=== PATIENT | male | born 1935 | race Caucasian/White ===

== ENCOUNTER → 2016-10-04 | Outpatient (CLI) | payer OTHER, MEDICARE ==
[~2016-10-04] MED LIST: AMARYL1 MG PO; APRESOLINE25 MG PO; ASPIRIN325 MG PO; BETHANECHOL CHL25 MG PO; CARBIDOPA-LEVO1 EA16 PO; CARBIDOPA/LEVO1 EACH PO; EFFEXOR75 MG PO; GLUCOPHAGE1000 MG PO; GLUCOPHAGE500 MG PO; HYDROCHLOROTH12.5 M3 PO; K-TAB10 MEQ PO; LIPITOR40 MG PO; LISINOPRIL40 MG PO; LO-DOSE ASPIRIN81 M1 PO; LOMOTIL TABLET1 EACH PO; METAMUCIL MULT425 GM PO; METAMUCIL POWD798 GM PO; METFORMIN HCL500 MG PO; METOPROLOL TAR100 MG PO; NEURONTIN300 MG PO; NORVASC10 MG PO; NORVASC5 MG PO; PLAVIX75 MG PO; POTASSIUM CHLO10 MEQ PO; PRAMIPEXOLE D0.25 MG PO; PRILOSEC20 MG PO; ROBAXIN750 MG PO; VITAMIN B-121000 MCG PO; VITAMIN B-12250 MCG PO; VITAMIN D2000 INTUN PO; VITAMIN D31000 UNIT PO; ZYLOPRIM100 MG PO
== END | disposition home or self-care (01) ==
LOC: AMB 09-21 13:00
DX: M79.606 Pain in leg, unspecified (principal); M51.26 Other intervertebral disc displacement, lumbar region
CPT/HCPCS: 62304; 72132

== ENCOUNTER 2016-12-15 19:45 | Observation (INO) | payer OTHER, MEDICARE ==
[~2016-12-15] VITALS: Ht 175.3 cm; Wt 99.0 kg
[2016-12-15 20:36] LABS: HEMATOCRIT 30.1 % (38.0-50.0); MCH 25.9 PG (29.0-34.0); MCHC 31.2 G/DL (30.0-36.0); MCV 82.9 FL (86-99); MEAN PLAT.VOLUME 9.4 uM^3 (9.0-12.4); PLATELET COUNT 168 K/uL (156-360); RBC DIS.WIDTH-CV 15.3 % (11.8-14.6); RBC DIS.WIDTH-SD 46.4 % (39-53); RED BLOOD COUNT 3.63 M/uL (4.00-5.50); WHITE BLOOD COUNT 5.2 K/uL (4.1-10.2)
[2016-12-15 20:45] LABS: CHLORIDE 108 mEq/L (99-109); POTASSIUM 3.4 mEq/L (3.7-5.4); SODIUM 144 mEq/L (136-147)
[2016-12-15 20:46] LABS: GLUCOSE 104 mg/dL (70-99)
[2016-12-15 20:48] LABS: ANION GAP 10 MEQ/L (2-14)
[2016-12-15 20:50] LABS: GFR ESTIMATE (CALCULATED) > 59 mL/min/
[2016-12-15 20:51] LABS: UREA NITROGEN (BUN) 21 mg/dL (9-23)
[2016-12-15 20:57] LABS: TROP-I INTERPRETATION NEGATIVE; TROPONIN-I 0.01 ng/mL (0.0-0.30)
[2016-12-15] MEDS ORDERED: HYDROCHLOROTHIA25 MG PO (23:59)
[2016-12-16] MEDS ORDERED: CYANOCOBALAM1000 MCG PO
[2016-12-16] MEDS ORDERED: STALEVO 200 TA1 EACH PO ×2 (00:01→07:56)
[2016-12-16] MEDS ORDERED: SINEMET 25-1001 EACH PO (00:01)
[2016-12-16] MEDS ORDERED: FUROSEMIDE20 MG PO (00:02)
[2016-12-16] MEDS ORDERED: METAXALONE800 MG PO (00:02)
[2016-12-16] MEDS ORDERED: HYDROCODON-ACE1 EAC7 PO (00:02)
[2016-12-16 00:40] VITALS: BP 162/74
[2016-12-16 03:22] LABS: HEMATOCRIT 33.1 % (38.0-50.0); MCH 26.1 PG (29.0-34.0); MCHC 31.4 G/DL (30.0-36.0); MEAN PLAT.VOLUME 10.4 uM^3 (9.0-12.4); PLATELET COUNT 204 K/uL (156-360); RBC DIS.WIDTH-CV 15.5 % (11.8-14.6); RBC DIS.WIDTH-SD 46.6 % (39-53); RED BLOOD COUNT 3.99 M/uL (4.00-5.50); WHITE BLOOD COUNT 6.7 K/uL (4.1-10.2)
[2016-12-16 03:36] LABS: CHLORIDE 107 mEq/L (99-109); POTASSIUM 3.5 mEq/L (3.7-5.4); SODIUM 144 mEq/L (136-147)
[2016-12-16 03:39] LABS: GLUCOSE 115 mg/dL (70-99)
[2016-12-16 03:40] LABS: ANION GAP 10 MEQ/L (2-14)
[2016-12-16 03:41] LABS: TOTAL BILIRUBIN 1.2 mg/dL (0.0-1.0)
[2016-12-16 03:42] LABS: ALKALINE PHOSPHATASE 79 IU/L (3-129); GFR ESTIMATE (CALCULATED) 56 mL/min/
[2016-12-16 03:43] LABS: UREA NITROGEN (BUN) 19 mg/dL (9-23)
[2016-12-16 03:53] LABS: TROP-I INTERPRETATION NEGATIVE; TROPONIN-I 0.02 ng/mL (0.0-0.30)
[2016-12-16 04:29] VITALS: BP 162/77
[2016-12-16 07:18] LABS: Estimated Average Glucose 128 mg/dL (70-123); HEMOGLOBIN A1c (GLYCOHEMOGLOB) 6.1 % HGB (Below 5.7)
[2016-12-16 08:00] VITALS: BP 175/79
[2016-12-16 08:30] LABS: POINT-OF-CARE METER ID UU14162513
[2016-12-16 10:00] LABS: TROP-I INTERPRETATION NEGATIVE; TROPONIN-I 0.03 ng/mL (0.0-0.30)
[2016-12-16 12:01] VITALS: BP 134/82
[2016-12-16 12:09] LABS: POINT-OF-CARE METER ID UU14162513
[2016-12-16] MEDS ORDERED: FUROSEMIDE40 MG PO (14:18)
== END 2016-12-16 15:36 | disposition home or self-care (01) ==
LOC: EME 19:45 → EDOF 22:59 → 5WEST 12-16 00:21
PROVIDERS: Internal Medicine
DX: I11.0 Hypertensive heart disease with heart failure (principal); I50.9 Heart failure, unspecified; E11.9 Type 2 diabetes mellitus without complications; D64.9 Anemia, unspecified; I25.10 Atherosclerotic heart disease of native coronary artery without angina pectoris; Z86.73 Personal history of transient ischemic attack (TIA), and cerebral infarction without residual deficits; E78.00 Pure hypercholesterolemia, unspecified; Z95.0 Presence of cardiac pacemaker; Z95.1 Presence of aortocoronary bypass graft; G47.33 Obstructive sleep apnea (adult) (pediatric); G20 Parkinson's disease; Z79.4 Long term (current) use of insulin; K21.9 Gastro-esophageal reflux disease without esophagitis
CPT/HCPCS: 71010; 71275; 80048; 80053; 82948; 83036; 84484; 85027; 93005; 99281; 99285; G0378; J1644; J1815; J1940

== ENCOUNTER → 2017-08-22 | Outpatient (CLI) | payer OTHER, MEDICARE ==
[~2017-08-22] MED LIST changes: +CYANOCOBALAM1000 MCG PO; +FERRO-TIME325 MG PO; +FUROSEMIDE20 MG PO; +FUROSEMIDE40 MG PO; +HYDROCHLOROTHIA25 MG PO; +HYDROCODON-ACE1 EAC7 PO; +METAXALONE800 MG PO; +SINEMET 25-1001 EACH PO; +STALEVO 200 TA1 EACH PO
== END | disposition home or self-care (01) ==
LOC: RAD 08:00 → OPR 08:00 → RAD 08:07 → EDSTATUS 09:00 → RAD 09:00
PROC: 0CB93ZX Excision of Left Parotid Gland, Percutaneous Approach, Diagnostic (ICD-10-PCS; principal; 2017-08-22)
DX: C07 Malignant neoplasm of parotid gland (principal)
CPT/HCPCS: 76942; 88305; 88341 TC; 88342 TC